=== PATIENT | male | born 2000 | race Caucasian/White ===

== ENCOUNTER 2021-09-22 07:02 | Emergency (ER) | payer OTHER, SELFPAY ==
[2021-09-22 07:09] VITALS: BP 127/77; PULSE 75; RESP 15; TEMP 36.8; O2SAT 98; BMI 21.7
--- NOTE | 2021-09-22 07:21 | CT_ITS ---
WS: [id number] CT ABDOMEN AND PELVIS WITH CONTRAST HISTORY: Abdominal pain with rectal bleeding. TECHNIQUE: Imaging performed of the abdomen and pelvis with IV contrast. Single phase imaging of the abdomen. Coronal and sagittal reformats are submitted. All CT scans at [facility] use at [address] one of these dose optimization techniques: automated exposure control; mA and/or kV adjustment per patient size (includes targeted exams where dose is matched to clinical indication); or iterative re construction. IV CONTRAST: Omnipaque 350; 95 mL IV. Oral contrast: No DLP: 1081.24 mGy.cm COMPARISON: None available. Lower thorax: Lung bases are clear. Heart is normal size. No hiatal hernia. Liver/biliary system: Normal size liver. Subhepatic cyst measures 6 mm superior RIGHT lobe the liver. No bile duct dilatation or mass. Portal vein is normal. Gallbladder: Mildly contracted gallbladder. No adjacent inflammation. Pancreas: Normal size pancreas and pancreatic duct. No adjacent inflammation. Spleen: Normal size spleen. No mass or infarct. Adrenal glands: Normal. Right kidney: Normal. Left kidney: Normal. Aorta: Normal. Lymphadenopathy: None. Free fluid: None. GI tract: Mild fluid distention hyperemia of the small bowel. There is a clumping of small bowel loop s in the RIGHT lower quadrant more intense focal mucosal thickening and engorgement of the adjacent v asa recta. No obstruction. The appendix is identified and normal. There is also mild wall thickening and narrowing of the terminal ileum. No obstruction. Abdominal wall: Unremarkable abdominal wall. No hernia. Pelvis: No free fluid or adenopathy within the pelvis. Bones: Unremarkable. CT/CT abdomen pelvis w con* [id number] IMPRESSION: 1. Mild diffuse fluid distention of the small bowel and hyperemia. More focal wall thickening and engorgement of the vasa recta in the RIGHT lower quadrant. These findings can be seen with gastroenteritis. Possibility of Crohn's disease should also be considered. 2. Normal appendix.
--- NOTE | 2021-09-22 07:23 | ED_ITS ---
HPI - GI Bleed General: Chief complaint: GI Bleed Stated complaint: bloody stool Time Seen by Provider: 09/22/21 07:06 History of Present Illness: HPI Narrative: 21-year-old male presents emergency room complaining of gross hematochezia. Patient had at least 3 episodes overnight of gross hematochezia that discolor the toilet bowl completely. He has had some nausea and complaining of right lower quadrant abdominal pain states it actually feels better if he applies pressure. He denies any dysuria urgency or frequency. No vomiting or diarrhea. MD complaint: gross hematochezia Onset (ago): hour(s) Pain Consistency: intermittent Severity: mild Relieving factors: none Associated symptoms: Reports abdominal pain (RLQ) and nausea; Denies chills, easy bruising, epistaxis, fever(s), headache(s), malaise, other bleeding, poor appetite, rash, syncope, vomiting or weakness Treatments Prior to Arrival: none Review of Systems Const: Denies: fever(s), chills or malaise ENMT: Denies: epistaxis Card: Denies: syncope Resp: Denies: dyspnea, productive cough or non-productive cough GI: Reports: abdominal pain (RLQ) and nausea; Denies: vomiting : Denies: flank pain, dysuria, urinary frequency or urinary urgency Skin/Breast: Denies: rash Neuro: Denies: headache(s) Denzel/Lymph: Denies: easy bruising Physical Exam Const: COMMON NORMALS: no acute distress GENERAL APPEARANCE: cooperative and comfortable ORIENTATION/CONSCIOUSNESS: Yes awake, Yes oriented to person, Yes oriented to place and Yes oriented to time HENMT: COMMON NORMALS: normocephalic, atraumatic and hearing grossly normal bilaterally HEAD & SCALP: normocephalic and atraumatic Neck/C-Spine: COMMON NORMALS: no JVD Resp: COMMON NORMALS: normal respiratory effort, No retractions, No use of accessory muscles and clear to auscultation bilaterally AUSCULTATION: clear to auscultation bilaterally Cardio: COMMON NORMALS: no JVD, regular rate, regular rhythm and No murmurs present (Cardio) RATE: regular rate RHYTHM: regular rhythm GI: COMMON NORMALS: Soft to palpation and No hepatosplenomegaly present AUSCULTATION: Yes normoactive bowel sounds PALPATION: Yes Soft to palpation, No Tenderness to palpation present (GI), No Guarding due to palpation present (GI) and Yes No hepatosplenomegaly present RECTAL EXAM: Yes visual inspection normal, Yes normal sphincter tone and Yes heme positive stool Extremity: COMMON NORMALS: normal to inspection, capillary refill normal, no clubbing, cyanosis or edema, no calf tenderness and no pedal edema Neuro: SENSORIUM/ORIENTATION: Yes oriented to person, Yes oriented to place and Yes oriented to time Skin: COMMON NORMALS: no rashes or lesions noted GENERAL SKIN EXAM: no rashes or lesions noted Course Vital Signs: Vital signs: Vital Signs Temperature 98.2 F 09/22/21 07:09 Pulse Rate 75 09/22/21 07:09 Respiratory Rate 15 09/22/21 07:09 Blood Pressure 127/77 09/22/21 07:09 Pulse Oximetry 98 09/22/21 07:09 MDM - GI Bleed MDM Narrative: Medical decision making narrative: Labs and imaging reviewed. There is some colitis present on the exam 1 to go and put him on Cipro and Flagyl for now ondansetron clear liquid diet for 24 to 48 hours. Fasting worsening or change return follow-up with his primary care doctor and may need endoscopy at a later date to further evaluate. Will ask case management to refer him to Dr. Rust. Lab Data: Labs: Lab Results 09/22/21 09/22/21 09/22/21 07:33 07:33 07:33 WBC 7.5 10^3/uL 10^3/ uL (4.0-10.0) RBC 4.87 10^6/uL 10^6 /uL (4.1-5.3) Hgb 15.1 g/dL g/dL (11.7-16.6) Hct 43.3 % % (42.0-52.0) MCV 88.9 fl fl (80-94) MCH 31.0 pg pg (28.0-34.0) MCHC 34.9 g/dL g/dL (30.0-36.0) RDW 12.1 % % (12.1-15.1) Plt Count 268 10^3/cmm 10^3 /cmm (130-400) MPV 9.6 fL fL (7.4-10.4) Neut % (Auto) 47.1 % % Lymph % (Auto) 40.4 % % Weber % (Auto) 7.0 % % Eos % (Auto) 4.7 % % Baso % (Auto) 0.5 % % Neut # (Auto) 3.53 10^3/uL 10^3 /uL (1.8-7.7) Lymph # (Auto) 3.0 10^3/uL 10^3/ uL (0.8-4.8) Weber # (Auto) 0.5 10^3/uL 10^3/ uL (0.2-0.9) Eos # (Auto) 0.4 10^3/uL 10^3/ uL (0.0-0.8) Baso # (Auto) 0.0 10^3/uL 10^3/ uL (0.0-0.1) Nucleated RBC % (a uto) 0 % % Nucleated RBCs # 0.0 /100WBC /100W BC PT 13.50 SECONDS SEC ONDS (12.1-14.9) INR 1.00 (0.8-1.2) APTT 30.8 SECONDS SECO NDS (23.9-36.7) Sodium 140 mmol/L mmol/L (136-145) Potassium 4.3 mmol/L mmol/L (3.5-5.1) Chloride 100 mmol/L mmol/L (98-107) Carbon Dioxide 27 mmol/L mmol/L (22-29) Anion Gap 17.3 (5-19) BUN 11 mg/dL mg/dL (6-20) Creatinine 0.8 mg/dL mg/dL (0.7-1.2) GFR Calculation 119.8 mL/min mL/m in (90-130) Glucose 90 mg/dL mg/dL (65-115) Calculated Osmolal ity 289 mOsm/kg mOsm/ kg (285-295) Calcium 9.5 mg/dL mg/dL (8.5-10.5) Total Bilirubin 1.4 mg/dL H mg/dL (0.15-1.2) AST 21 U/L U/L (0-40) ALT 21 U/L U/L (0-41) Alkaline Phosphata se 80 IU/L IU/L (40-130) Total Protein 7.4 g/dL g/dL (6.6-8.7) Albumin 5.3 g/dL H g/dL (3.5-5.2) Globulin 2.1 g/dL g/dL (1.3-4.6) Urine Color Urine Appearance Urine pH Ur Specific Gravit y Urine Protein Urine Glucose (UA) Urine Ketones Urine Blood Urine Nitrate Urine Bilirubin Urine Urobilinogen Ur Leukocyte Taylor ase 09/22/21 08:49 WBC RBC Hgb Hct MCV MCH MCHC RDW Plt Count MPV Neut % (Auto) Lymph % (Auto) Weber % (Auto) Eos % (Auto) Baso % (Auto) Neut # (Auto) Lymph # (Auto) Weber # (Auto) Eos # (Auto) Baso # (Auto) Nucleated RBC % (a uto) Nucleated RBCs # PT INR APTT Sodium Potassium Chloride Carbon Dioxide Anion Gap BUN Creatinine GFR Calculation Glucose Calculated Osmolal ity Calcium Total Bilirubin AST ALT Alkaline Phosphata se Total Protein Albumin Globulin Urine Color Yellow (Yellow) Urine Appearance Clear (CLEAR) Urine pH 7 (5-7) Ur Specific Gravit y 1.000 L (1.005-1.030) Urine Protein Neg (Negative) Urine Glucose (UA) Norm (Normal) Urine Ketones Negative (Negative) Urine Blood Neg (Negative) Urine Nitrate Negative (Negative) Urine Bilirubin Neg (Negative) Urine Urobilinogen Norm mg/dL mg/dL (Negative) Ur Leukocyte Taylor ase Negative (Negative) Discharge Plan Discharge Patient Disposition: Home Clinical Impression: Colitis Condition: Stable Prescriptions: New Zofran 4 mg tablet 4 mg PO Q6H PRN (Reason: nausea and vomiting) Qty: 20 RF: 0 ciprofloxacin HCl 500 mg tablet 500 mg PO BID Qty: 20 RF: 0 Flagyl 500 mg tablet 500 mg PO BID 10 Days Qty: 20 RF: 0 Discharge Orders: Discharge ED (Routine); Ordered 09/22/21 Ordered By: Saul Ackerman Referrals: Tho Montanez Jr, MD [Primary Care Provider] - Discharge Diet: Clear Liquid Discharge Activity: Increase activity as tolerated Patient Instructions: Opioid Safety Activity Restrictions/Additional Instructions: Clear liquid diet for 24 to 48 hours. Then advance as tolerated. Case management will call to make arrangements for you to see a physician for endoscopy at a later date. Coding Level of Care Code ED Audio Visual Coordinator for Chg Fwd Exam Comprehensive
[2021-09-22 07:54] LABS: Basophils % 0.5 %; Eosinophils # 0.4 10^3/uL (0.0-0.8); Eosinophils % 4.7 %; Hematocrit 43.3 % (42.0-52.0); Hemoglobin 15.1 g/dL (11.7-16.6); Lymphocytes % 40.4 %; Mean Corpuscular HGB Conc 34.9 g/dL (30.0-36.0); Mean Corpuscular Volume 88.9 fl (80-94); Mean Platelet Volume 9.6 fL (7.4-10.4); Monocytes # 0.5 10^3/uL (0.2-0.9); Neutrophils # 3.53 10^3/uL (1.8-7.7); Neutrophils % 47.1 %; Nucleated Red Blood Cells % 0 %; Platelet Count 268 10^3/cmm (130-400); Red Blood Count 4.87 10^6/uL (4.1-5.3); Red Cell Distribution Width 12.1 % (12.1-15.1); White Blood Count 7.5 10^3/uL (4.0-10.0)
[2021-09-22 08:11] LABS: Alanine Aminotransferase 21 U/L (0-41); Albumin Level 5.3 g/dL (3.5-5.2); Alkaline Phosphatase 80 IU/L (40-130); Anion Gap 17.3 (5-19); Aspartate Amino Transferase 21 U/L (0-40); Blood Urea Nitrogen 11 mg/dL (6-20); Calcium 9.5 mg/dL (8.5-10.5); Carbon Dioxide 27 mmol/L (22-29); Chloride 100 mmol/L (98-107); Globulin 2.1 g/dL (1.3-4.6); Glomerular Filtration Rate 119.8 mL/min (90-130); Glucose 90 mg/dL (65-115); Osmolality Calculated 289 mOsm/kg (285-295); Potassium 4.3 mmol/L (3.5-5.1); Sodium 140 mmol/L (136-145); Total Bilirubin 1.4 mg/dL (0.15-1.2); Total Protein 7.4 g/dL (6.6-8.7)
[2021-09-22 08:14] LABS: Partial Thromboplastin Time 30.8 SECONDS (23.9-36.7)
[2021-09-22] MEDS: iohexol 350 mg/mL 100 mL Btl IV (08:14)
[2021-09-22 09:01] LABS: Add Urine Microscopic? NO; Charge for UA Resulting for Rev
[2021-09-22 09:11] LABS: Bilirubin Urine Neg (Negative); Blood Urine Neg (Negative); Glucose Urine UA Norm (Normal); Ketones Urine Negative (Negative); Leukocyte Esterase Urine Negative (Negative); Nitrate Urine Negative (Negative); Protein Urine Neg (Negative); Urine Appearance Clear (CLEAR); Urine Color Yellow (Yellow); Urobilinogen Urine Norm (Negative); pH Urine 7 (5-7)
[2021-09-22 09:28] VITALS: BP 114/69; PULSE 58; RESP 17; O2SAT 99
--- NOTE | 2021-10-05 12:26 | DCPLANNER ---
global marketing manager had message to schedule a follow up appointment for patient for patient with Dr. Rust. global marketing manager called the office of Dr. Rust, spoke with Simi, gave clinic patients information. A follow up appointment was scheduled for , October 08, 2021 at 9:[address] Rust. global marketing manager called and gave patient the appointment information.
--- NOTE | 2021-10-29 13:54 | DCPLANNER ---
Patient had a follow up appointment with Dr. Rust - patient did not attend appointment.
== END 2021-09-22 09:31 | disposition home or self-care (01) ==
PROVIDERS: Emergency Provider Family Medicine; PCP Pediatrics Adolescent Medicine
DX: K52.9 Noninfective gastroenteritis and colitis, unspecified (principal)
CPT/HCPCS: 74177; 80053; 81003; 85025; 85610; 85730; 99283; Q9967

== ENCOUNTER 2022-08-19 10:30 | Emergency (ER) | payer SELFPAY ==
[2022-08-19 10:38] VITALS: BP 120/55; PULSE 93; RESP 18; TEMP 36.8; O2SAT 97
--- NOTE | 2022-08-19 18:27 | W.ED.SKABFB ---
HPI - Skin/Abscess/Foreign Bdy General: Chief complaint: Skin/Abscess/Foreign Body Stated complaint: tooth/jaw pain Time Seen by Provider: 08/19/22 10:39 History of Present Illness: 22 yo male patient presents to ER with right upper dental pain with some mild facial swelling x3 days. Pt states he has a known infected tooth but hasnt had time to get into dentist. Pt denies any fever, trismus or difficulty swallowing. Associated symptoms: Deny chills, fever(s), nausea or vomiting Review of Systems Const: Denies: fever(s), chills, body aches, change in appetite, change in weight, fatigue, malaise or diaphoresis Eyes: Denies: change in vision, blurry vision, blind spots, photophobia, eye discomfort, eye discharge, eye redness, floaters or seeing flashes ENMT: Denies: throat pain, uvular edema, enlarged tonsils, odynophagia, hoarseness, mouth pain, swelling of lips/tongue, oral sores, bleeding gums, dry mouth, ear or mastoid pain, ear discharge, change in hearing, tinnitus, disequilibrium, nasal discharge, nasal congestion, post nasal drip or sinus pain Card: Denies: chest pain, palpitations, irregular heart rhythm, edema, swelling of feet/ankles, lightheadedness, syncope, pre-syncope, dyspnea on exertion, orthopnea, leg pain with exertion or acrocyanosis Resp: Denies: dyspnea, productive cough, non-productive cough, wheezing, stridor, pain on inspiration, change in phlegm color, hemoptysis or chest congestion GI: Denies: abdominal pain, nausea, vomiting, hematemesis, dysphagia, diarrhea, constipation, GI cramping, change in bowel habits or rectal pain : Denies: flank pain, dysuria, urinary frequency, urinary urgency, urinary hesitancy or hematuria Musc: Denies: neck pain, back pain, extremity pain, extremity swelling, joint pain, joint swelling, joint redness, joint warmth or deformity Skin/Breast: Denies: rash, pruritus, erythema, sores, new lesions, changes in skin color or dry skin Neuro: Denies: headache(s), numbness in extremities, weakness in extremities, sensory changes, lack of coordination, difficulty walking, frequent falls, dizziness, vertigo, confusion, behavioral changes, Slurred speech present, difficulty communicating thoughts or seizure-like activity Psych: Denies: anxiety, depression, suicidal ideation or homicidal ideation Endo: Denies: polyuria, polydipsia, tired all the time, cold intolerance, excessive sweating, flushing, hot flashes or heat intolerance Denzel/Lymph: Denies: easy bruising, easy bleeding, petechiae, purpura, enlarged lymph nodes or tender lymph nodes All/Imm: Denies: urticaria, throat swelling, tongue swelling, facial swelling, acute wheezing or itchy eyes Physical Exam Const: COMMON NORMALS: no acute distress, patient oriented x3, healthy appearing, alert and well nourished GENERAL APPEARANCE: cooperative, comfortable, well kempt and well developed; not ill appearing ORIENTATION/CONSCIOUSNESS: Yes awake, Yes oriented to person, Yes oriented to place and Yes oriented to time HENMT: COMMON NORMALS: normocephalic, atraumatic, hearing grossly normal bilaterally, external ears normal, EAC's normal, TM's normal bilaterally, Normal external nose present, Normal nasal mucous membranes and turbinates present and moist oral mucous membranes HEAD & SCALP: normal to inspection, normocephalic and atraumatic NOSE: Normal external nose present, Normal nares present, Normal nasal mucous membranes and turbinates present, No nasal discharge present and Abnormal external nose present EXTERNAL EAR: Yes external ears normal and Yes mastoids normal EXTERNAL AUDITORY CANAL: EAC's normal TYMPANIC MEMBRANE: TM's normal bilaterally MOUTH: Normal oral and palatal mucosa present, lip normal, tongue normal and Normal salivary glands and ducts present THROAT: no uvular edema Eye: COMMON NORMALS: Equal, round and reactive pupils present, EOMs intact bilaterally, conjunctivae normal, no scleral icterus and no papilledema GENERAL EYE: appearance normal, both eyes and all related structures EYELID: eyelids normal CONJUNCTIVA: Yes conjunctivae normal SCLERA: sclerae normal CORNEA: Yes corneas normal PUPIL: Yes Equal, round and reactive pupils present DIRECT OPHTHALMOSCOPY: Yes no papilledema Neck/C-Spine: COMMON NORMALS: full ROM, no lymphadenopathy, supple, no meningeal signs, no JVD and Thyroid normal GENERAL: Yes normal visual inspection and Yes trachea midline THYROID: Thyroid normal CERVICAL SPINE: Yes cervical ROM normal Lymph: LYMPHATIC: no lymphadenopathy noted and no lymphedema noted Chest: COMMONS NORMALS: normal inspection of the chest and normal palpation of entire chest wall Resp: COMMON NORMALS: normal respiratory effort, No retractions, No use of accessory muscles and clear to auscultation bilaterally EFFORT & INSPECTION: Yes able to speak in complete sentences and Yes symmetric chest movement AUSCULTATION: clear to auscultation bilaterally Cardio: COMMON NORMALS: no JVD, regular rate and regular rhythm RATE: regular rate RHYTHM: regular rhythm Neuro: COMMON NORMALS: patient oriented x3, CN's II-XII intact bilaterally, moves all extremities, no focal motor deficits, no sensory deficits noted, deep tendon reflexes 2+ bilaterally and gait normal SENSORIUM/ORIENTATION: Yes alert, Yes oriented to person, Yes oriented to place and Yes oriented to time MENINGEAL SIGNS: Yes no meningeal signs CRANIAL NERVES: Yes CN normal except as noted SPEECH: speech normal GAIT: Yes Normal gait present SENSORY EXAM: Yes extremities MOTOR EXAM: 5/5 motor strength present throughout Psych: COMMON NORMALS: mental status grossly normal, Normal thought process present, cooperative, normal affect, speech normal, activity/motor behavior normal, denies hallucinations, denies homicidal ideation and denies suicidal ideation APPEARANCE: Yes grossly normal and Yes well kempt ATTITUDE: Yes calm ACTIVITY/MOTOR BEHAVIOR: Yes appropriate eye contact SPEECH: Yes normal speech THOUGHT PROCESS: Normal thought process present THOUGHT CONTENT: Yes Normal thought content present ATTENTION/CONCENTRATION: Yes attention grossly intact MEMORY/COGNITION: Yes memory grossly intact INSIGHT: Good insight present (Psych) JUDGEMENT: Good judgement present (Psych) Skin: COMMON NORMALS: no rashes or lesions noted, no wounds, turgor normal, no jaundice, no petechiae and no mottling GENERAL SKIN EXAM: no rashes or lesions noted and turgor normal Course Vital Signs: Vital signs: Vital Signs Temperature 98.2 F 08/19/22 10:38 Pulse Rate 93 08/19/22 10:38 Respiratory Rate 18 08/19/22 10:38 Blood Pressure 120/55 08/19/22 10:38 Pulse Oximetry 97 08/19/22 10:38 Oxygen Delivery Me thod 08/19/22 10:38 MDM - Skin/Abscess/Foreign Bdy Medicial Decision Making Patient is well appearing non toxic and in no acute distress. 22 yo male patient presents to ER with right upper dental pain with some mild facial swelling x3 days. Pt states he has a known infected tooth but hasnt had time to get into dentist. Pt denies any fever, trismus or difficulty swallowing. Pt has mild right sided facial cellulitis. Pt has multiple infected dental carries right upper jaw. there is no obvious evidence of dental abscess. I will start on antibiotics and have follow up with dentist. Discharge Plan Discharge Patient Disposition: Home Clinical Impression: Infected dental caries Condition: Stable Prescriptions: New Cleocin HCl 300 mg capsule 300 mg PO Q12H 7 Days Qty: 14 0RF No Action Zofran 4 mg tablet 4 mg PO Q6H PRN (Reason: nausea and vomiting) Qty: 20 0RF ciprofloxacin HCl 500 mg tablet 500 mg PO BID Qty: 20 0RF Discharge Orders: Discharge ED (Routine); Ordered 08/19/22 Ordered By: Kait Stanford Discharge Diet: Advance as tolerated Discharge Activity: Increase activity as tolerated Patient Instructions: Opioid Safety, Pain Management Activity Restrictions/Additional Instructions: May take Motrin per label directions for pain Take medications as prescribed Please see your dentist as soon as possible Return to ER with any worsening of conditions Coding Level of Care Code ED Diesel Trailer Mechanic for Lisandro Goldstein
== END 2022-08-19 11:20 | disposition home or self-care (01) ==
PROVIDERS: Emergency Provider Registered Nurse
DX: K02.9 Dental caries, unspecified (principal)
CPT/HCPCS: 99283

== ENCOUNTER 2022-11-05 02:28 | Emergency (ER) | payer SELFPAY ==
[2022-11-05 02:33] VITALS: BP 136/52; PULSE 92; RESP 18; TEMP 36.6; O2SAT 97; BMI 21.6
--- NOTE | 2022-11-05 02:37 | XRR_ITS ---
PROCEDURE INFORMATION: Exam: XR Left Forearm Exam date and time: 11/05/2022 2:41 AM Age: 22 years old Clinical indication: Lower or forearm; Left; Patient HX: C/O pain to forearm. No recent injury. TECHNIQUE: Imaging protocol: Radiologic exam of the Left forearm. Views: 2 views. Frontal and lateral COMPARISON: No relevant prior studies available. FINDINGS: Bones/joints: There is normal alignment without fractures or dislocations. The visualized incompletely evaluated wrist and elbow joints are anatomically aligned. Soft tissues: There is no radiographic soft tissue swelling. There are no radiopaque foreign bodies. Notes: If there is further concern, recommend follow-up radiographs or MRI for complete assessment. XR/XR forearm LT 2V [id number] IMPRESSION: No fractures or dislocation of the left forearm.
--- NOTE | 2022-11-05 02:39 | ED_ITS ---
HPI - Extremity Problem General: Chief complaint: Extremity Injury, Upper Stated complaint: Left Arm Swollen and Hurts-Injury Time Seen by Provider: 11/05/22 02:35 Source: patient Mode of arrival: ambulatory Limitations: no limitations History of Present Illness: 22 male states he has had left wrist pain over the last 2 days. He states that it hurts when he moves it denies any fever denies any injury he states he also had a fall 2 weeks ago on has some slight left index finger pain but denies injuring his wrist then. Associated symptoms: Deny chest pain, fever(s) or rash Review of Systems Const: Denies: fever(s), chills, body aches or change in appetite Eyes: Denies: blurry vision or eye discomfort ENMT: Denies: throat pain or dental pain Card: Denies: chest pain Resp: Denies: dyspnea GI: Denies: abdominal pain, nausea, vomiting or diarrhea : Denies: dysuria Musc: Reports: extremity pain Skin/Breast: Denies: rash Neuro: Denies: headache(s) Psych: Denies: depression Denzel/Lymph: Denies: easy bruising All/Imm: Denies: urticaria PFS ED PFSH: Medical History (Updated 11/05/22 @ 02:53 by Latricia Shen MD) No pertinent past medical history Social History Smoking and tobacco status: current every day smoker Physical Exam Const: COMMON NORMALS: no acute distress and patient oriented x3 HENMT: COMMON NORMALS: normocephalic HEAD & SCALP: normocephalic Eye: COMMON NORMALS: conjunctivae normal CONJUNCTIVA: Yes conjunctivae n ormal Neck/C-Spine: COMMON NORMALS: full ROM Chest: COMMONS NORMALS: normal inspection of the chest Resp: COMMON NORMALS: normal respiratory effort Cardio: COMMON NORMALS: regular rate RATE: regular rate GI: INSPECTION: Yes normal to inspection Extremity: OTHER: Slight tenderness over left wrist no abscess or erythema Neuro: COMMON NORMALS: patient oriented x3 Psych: COMMON NORMALS: mental status grossly normal Skin: COMMON NORMALS: no rashes or lesions noted GENERAL SKIN EXAM: no rashes or lesions noted Course Vital Signs: Vital signs: Vital Signs Temperature 98 F 11/05/22 02:33 Pulse Rate 92 11/05/22 02:33 Respiratory Rate 18 11/05/22 02:33 Blood Pressure 136/52 11/05/22 02:33 Pulse Oximetry 97 11/05/22 02:33 MDM - Extremity (Nontraumatic) Medical Decision Making Patient presents here with wrist pain is likely a tendinitis x-ray here is normal he has no signs of cellulitis or fracture he is to ice we will place him Naprosyn he is stable for discharge he is follow-up PCP and return if worsening. Discharge Plan Discharge Patient Disposition: Home Clinical Impression: Wrist pain Qualifiers: Laterality: left Qualified Code(s): M25.532 - Pain in left wrist Condition: Stable Prescriptions: New Naprosyn 500 mg tablet 500 mg PO BID PRN (Reason: pain) Qty: 20 0RF Discharge Orders: Discharge ED (Routine); Ordered 11/05/22 Ordered By: Latricia Shen Discharge Diet: Advance as tolerated Discharge Activity: Resume usual activity Patient Instructions: Arthralgia (ED) Coding Level of Care Code ED Inspector Hairspring for Lianag Fwd Exam Comprehensive
--- NOTE | 2022-11-05 02:41 | XRR_ITS ---
PROCEDURE INFORMATION: Exam: XR Left Hand Exam date and time: 11/05/2022 2:45 AM Age: 22 years old Clinical indication: Lower or forearm and hand; Left; Patient HX: C/O pain to hand. No recent injury. TECHNIQUE: Imaging protocol: Radiologic exam of the Left hand. Views: 3 or more views. Frontal Oblique Lateral COMPARISON: CR (UP EXM, ) 11/05/2022 2:41 AM FINDINGS: Bones/joints: There is normal alignment without fractures or dislocations. The joint spaces appear unremarkable. Soft tissues: There is no radiographic soft tissue swelling. There are no radiopaque foreign bodies. Notes: If there is further concern, recommend follow-up radiographs or MRI for complete assessment. XR/XR hand LT min 3V* [id number] IMPRESSION: No fractures or dislocation of the left hand.
[2022-11-05] MEDS: naproxen 500 mg Tablet PO (02:42)
== END 2022-11-05 02:59 | disposition home or self-care (01) ==
PROVIDERS: Emergency Provider Emergency Medicine
DX: M25.532 Pain in left wrist (principal); F17.210 Nicotine dependence, cigarettes, uncomplicated
CPT/HCPCS: 73090; 73130; 99283

== ENCOUNTER 2022-12-23 07:45 | Emergency (ER) | payer SELFPAY ==
[2022-12-23 07:52] VITALS: BP 157/79; PULSE 115; RESP 16; TEMP 36.7; O2SAT 96; BMI 19.6
--- NOTE | 2022-12-23 07:57 | ED_ITS ---
HPI - Abdominal Pain General: Chief Complaint: Nausea/Vomiting/Diarrhea Stated Complaint: Fever, N/V Time Seen by Provider: 12/23/22 07:47 Source: patient Mode of arrival: ambulatory History of Present Illness: 22-year-old male who presents to the emergency room with complaints of nausea vomiting and diarrhea began yesterday morning is temp up to 102.4 at home he has had a little bit of a cough. Denies dysuria urgency or frequency. No hemoptysis no hematochezia melena hematemesis coffee- ground emesis patient is currently trying to stop smoking. Denies use of marijuana products. Does not drink regularly. MD elicited complaint: abdominal pain Pertinent past history: none Onset (ago): day(s) Pain Consistency: constant Location: Diffuse Severity: mild Quality: cramping Exacerbating factors: nothing Relieving factors: nothing Associated Symptoms: Reports GI cramping, diarrhea, fever(s), loose stools, nausea, poor appetite and vomiting; Denies anorexia, belching, bloating, change in bowel habits, change in stool character, chills, coffee ground emesis, constipation, dyspepsia, dysuria, excessive flatus, heartburn, hematochezia, hematuria, hematemesis, fecal incontinence, melena and syncope Review of Systems Const: Reports: fever(s), fatigue and malaise; Denies: chills ENMT: Denies: throat pain, ear or mastoid pain, nasal discharge or nasal congestion Card: Denies: chest pain, palpitations or syncope Resp: Denies: dyspnea, productive cough or non-productive cough GI: Reports: abdominal pain, nausea, vomiting, diarrhea and GI cramping; Denies: hematemesis, coffee ground emesis, heartburn, constipation, bloating, belching, excessive flatus, fecal incontinence, change in bowel habits, change in stool character, hematochezia or melena : Denies: flank pain, dysuria, urinary frequency, urinary urgency or hematuria Skin/Breast: Denies: rash or pruritus PFSH ED PFSH: Medical History No pertinent past medical history Social History Smoking and tobacco status: current every day smoker Physical Exam Const: GENERAL APPEARANCE: cooperative and comfortable ORIENTATIO N/CONSCIOUSNESS: Yes awake, Yes oriented to person, Yes oriented to place and Yes oriented to time HENMT: COMMON NORMALS: normocephalic, atraumatic and hearing grossly normal bilaterally HEAD & SCALP: normocephalic and atraumatic Resp: COMMON NORMALS: normal respiratory effort, No retractions, No use of accessory muscles and clear to auscultation bilaterally AUSCULTATION: clear to auscultation bilaterally Cardio: COMMON NORMALS: regular rate, regular rhythm and No murmurs present (Cardio) RATE: regular rate RHYTHM: regular rhythm GI: COMMON NORMALS: Soft to palpation and No hepatosplenomegaly present AUSCULTATION: Yes normoactive bowel sounds PALPATION: Yes Soft to palpation, No Tenderness to palpation present (GI), No Guarding due to palpation present (GI) and Yes No hepatosplenomegaly present Extremity: COMMON NORMALS: normal to inspection, capillary refill normal, no clubbing, cyanosis or edema, no calf tenderness and no pedal edema Neuro: SENSORIUM/ORIENTATION: Yes oriented to person, Yes oriented to place and Yes oriented to time Skin: COMMON NORMALS: no rashes or lesions noted GENERAL SKIN EXAM: no rashes or lesions noted Course Vital Signs: Vital signs: Vital Signs Temperature 98.0 F 12/23/22 07:52 Pulse Rate 115 H 12/23/22 07:52 Respiratory Rate 16 12/23/22 07:52 Blood Pressure 157/79 12/23/22 07:52 Pulse Oximetry 96 12/23/22 07:52 Oxygen Delivery Me thod 12/23/22 07:52 MDM - Abdominal Pain Medical Decision Making Patient seen for GI symptoms. Respiratory symptoms with cough. Several other family members have been sick including a young child who that was thought to have croup is nearly recovered. Suspect he probably does have COVID especially with his cough. We will contact him with results once available can use promethazine as needed his vital signs are stable and can be treated as an outpatient. Auscultation of his chest was clear. Medical Records I reviewed the patient's medical records. Lab Data I reviewed the patient's lab results. 12/23/22 08:38 12/23/22 08:38 Labs/Radiology: Laboratory Results WBC 13.9 10^3/uL (4.0-10.0) H 12/23/22 08:38 RBC 5.13 10^6/uL (4.1-5.3) 12/23/22 08:38 Hgb 15.7 g/dL (11.7-16.6) 12/23/22 08:38 Hct 45.3 % (42.0-52.0) 12/23/22 08:38 MCV 88.3 fl (80-94) 12/23/22 08:38 MCH 30.6 pg (28.0-34.0) 12/23/22 08:38 MCHC 34.7 g/dL (30.0-36.0) 12/23/22 08:38 RDW 11.9 % (12.1-15.1) L 12/23/22 08:38 Plt Count 188 10^3/cmm (130-400) 12/23/22 08:38 MPV 9.4 fL (7.4-10.4) 12/23/22 08:38 Neut % (Auto) 84.8 % 12/23/22 08:38 Lymph % (Auto) 6.6 % 12/23/22 08:38 [place] % (Auto) 7.8 % 12/23/22 08:38 Eos % (Auto) 0.0 % 12/23/22 08:38 Baso % (Auto) 0.2 % 12/23/22 08:38 Neut # (Auto) 11.75 10^3/uL (1.8-7.7) H 12/23/22 08:38 Lymph # (Auto) 0.9 10^3/uL (0.8-4.8) 12/23/22 08:38 [place] # (Auto) 1.1 10^3/uL (0.2-0.9) H 12/23/22 08:38 Eos # (Auto) 0.0 10^3/uL (0.0-0.8) 12/23/22 08:38 Baso # (Auto) 0.0 10^3/uL (0.0-0.1) 12/23/22 08:38 Nucleated RBC % (auto) 0 % 12/23/22 08:38 Nucleated RBCs # 0.0 /100WBC 12/23/22 08:38 Sodium 134 mmol/L (136-145) L 12/23/22 08:38 Potassium 3.7 mmol/L (3.5-5.1) 12/23/22 08:38 Chloride 95 mmol/L (98-107) L 12/23/22 08:38 Carbon Dioxide 24 mmol/L (22-29) 12/23/22 08:38 Anion Gap 18.7 (5-19) 12/23/22 08:38 BUN 9 mg/dL (6-20) 12/23/22 08:38 Creatinine 0.8 mg/dL (0.7-1.2) 12/23/22 08:38 GFR Calculation 118.8 mL/min (90-130) 12/23/22 08:38 Glucose 130 mg/dL (65-115) H 12/23/22 08:38 Calculated Osmolality 278 mOsm/kg (285-295) L 12/23/22 08:38 Calcium 9.5 mg/dL (8.5-10.5) 12/23/22 08:38 Total Bilirubin 1.7 mg/dL (0.15-1.2) H 12/23/22 08:38 AST 18 U/L (0-40) 12/23/22 08:38 ALT 16 U/L (0-41) 12/23/22 08:38 Alkaline Phosphatase 74 U/L (40-130) 12/23/22 08:38 Total Protein 7.3 g/dL (6.6-8.7) 12/23/22 08:38 Albumin 4.9 g/dL (3.5-5.2) 12/23/22 08:38 Globulin 2.4 g/dL (1.3-4.6) 12/23/22 08:38 Lipase 13 U/L (13-60) 12/23/22 08:38 Influenza Type A Ag negative (Negative) 12/23/22 08:45 Influenza Type B Ag negative (Negative) 12/23/22 08:45 Discharge Plan Discharge Patient Disposition: Home Clinical Impression: Viral URI with cough, Gastroenteritis Condition: Stable Prescriptions: New promethazine 25 mg tablet 25 mg PO Q6H PRN (Reason: nausea and vomiting) Qty: 20 0RF No Action Naprosyn 500 mg tablet 500 mg PO BID PRN (Reason: pain) Qty: 20 0RF Discharge Orders: Discharge ED (Routine); Ordered 12/23/22 Ordered By: Saul Ackerman Patient Instructions: Opioid Safety, Pain Management Activity Restrictions/Additional Instructions: You were seen today for cough congestion nausea vomiting and diarrhea. Laboratory tests did not show any significant findings. Suspect you have a gastroenteritis likely your GI symptoms and upper respiratory symptoms are all caused by COVID COVID test is pending. Recommend that you self quarantine until the results are back. Increase fluid intake you can use promethazine as needed for nausea and vomiting. Staff will contact you the results of your COVID testing when they are completed Coding Level of Care Code ED [employer] for Lisandro Goldstein
--- NOTE | 2022-12-23 08:48 | PC.NURSE ---
pt reports nausea, vomiting, diarrhea, fevers, and body aches that began yesterday. pt speech clear. speaking in complete sentences without difficulty. lung sounds clear bilat. bowel sounds present x4
[2022-12-23 08:59] LABS: Basophils % 0.2 %; Hematocrit 45.3 % (42.0-52.0); Hemoglobin 15.7 g/dL (11.7-16.6); Lymphocytes # 0.9 10^3/uL (0.8-4.8); Lymphocytes % 6.6 %; Mean Corpuscular HGB Conc 34.7 g/dL (30.0-36.0); Mean Corpuscular Hemoglobin 30.6 pg (28.0-34.0); Mean Corpuscular Volume 88.3 fl (80-94); Mean Platelet Volume 9.4 fL (7.4-10.4); Monocytes # 1.1 10^3/uL (0.2-0.9); Monocytes % 7.8 %; Neutrophils # 11.75 10^3/uL (1.8-7.7); Neutrophils % 84.8 %; Nucleated Red Blood Cells % 0 %; Platelet Count 188 10^3/cmm (130-400); Red Blood Count 5.13 10^6/uL (4.1-5.3); Red Cell Distribution Width 11.9 % (12.1-15.1); White Blood Count 13.9 10^3/uL (4.0-10.0)
[2022-12-23] MEDS: sodium chloride 0.9% 1,000 ML 999 ML IV ×2 (09:03→10:30)
[2022-12-23] MEDS: ondansetron 2 mg/ML SDV 2 mL 4 MG IVP (09:04)
[2022-12-23 09:16] LABS: Alanine Aminotransferase 16 U/L (0-41); Albumin Level 4.9 g/dL (3.5-5.2); Alkaline Phosphatase 74 U/L (40-130); Anion Gap 18.7 (5-19); Aspartate Amino Transferase 18 U/L (0-40); Blood Urea Nitrogen 9 mg/dL (6-20); Calcium 9.5 mg/dL (8.5-10.5); Carbon Dioxide 24 mmol/L (22-29); Chloride 95 mmol/L (98-107); Globulin 2.4 g/dL (1.3-4.6); Glomerular Filtration Rate 118.8 mL/min (90-130); Glucose 130 mg/dL (65-115); Lipase 13 U/L (13-60); Osmolality Calculated 278 mOsm/kg (285-295); Potassium 3.7 mmol/L (3.5-5.1); Sodium 134 mmol/L (136-145); Total Bilirubin 1.7 mg/dL (0.15-1.2); Total Protein 7.3 g/dL (6.6-8.7)
[2022-12-23 09:16] LABS: Influenza A by IFA negative (Negative); Influenza B by IFA negative (Negative)
[2022-12-23 09:24] VITALS: BP 147/72; PULSE 96; O2SAT 98
[2022-12-23 10:00] VITALS: BP 134/69; PULSE 99; O2SAT 98
[2022-12-23 10:46] LABS: Adenovirus Not Detected (NOT DETECT); Chlamydia Pneumoniae Not Detected (NOT DETECT); Coronavirus 229E,HKU1,NL63,OC4 Not Detected (NOT DETECT); Human Metapneumovirus Not Detected (NOT DETECT); Human Rhinovirus/Enterovirus Not Detected (NOT DETECT); Influenza A Not Detected (NOT DETECT); Influenza A H1 Not Detected (NOT DETECT); Influenza A H1-2009 Not Detected (NOT DETECT); Influenza A H3 Not Detected (NOT DETECT); Influenza B Not Detected (NOT DETECT); Mycoplasma Pneumoniae Not Detected (NOT DETECT); Parainfluenza Virus Type 1 Not Detected (NOT DETECT); Parainfluenza Virus Type 2 Not Detected (NOT DETECT); Parainfluenza Virus Type 3 Not Detected (NOT DETECT); Parainfluenza Virus Type 4 Not Detected (NOT DETECT); Respiratory Syncytial Virus A Not Detected (NOT DETECT); Respiratory Syncytial Virus B Not Detected (NOT DETECT); SARS-COV-2 Not Detected (NOT DETECT)
[2022-12-23 12:38] VITALS: BP 123/67; PULSE 113; O2SAT 95
== END 2022-12-23 12:41 | disposition home or self-care (01) ==
PROVIDERS: Emergency Provider Family Medicine
DX: K52.9 Noninfective gastroenteritis and colitis, unspecified (principal); J06.9 Acute upper respiratory infection, unspecified; F17.210 Nicotine dependence, cigarettes, uncomplicated; Z20.822 Contact with and (suspected) exposure to COVID-19
CPT/HCPCS: 80053; 83690; 85025; 87635; 87804; 96361; 96374; 99284; J2405; J7030